=== PATIENT | female | born 1995 | race Two or more races ===

== ENCOUNTER 2018-11-28 08:38 | Emergency (ER) | payer OTHER ==
[~2018-11-28] VITALS: Ht 162.6 cm; Wt 52.6 kg
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
[2018-11-28] MEDS ORDERED: HYDROcodone/APAP 5/325 TABLET ONE (11:13)
[2018-11-28] MEDS ORDERED: HYDROcodone/APAP 5/325 TABLET PO ONE (11:30)
[2018-11-28] MEDS ORDERED: ONDANSETRON ODT 4 MG ONE (11:55)
[2018-11-28] MEDS ORDERED: ONDANSETRON ODT 4 MG PO ONE (12:00)
[2018-11-28 12:15] VITALS: BP 93/49
--- NOTE | 2018-11-28 12:18 | NUR ---
PT RESTIN COMFORTABLE EATING. ACCOMPANIED BY FRIEND. CALL LIGHT IN REACH
--- NOTE | 2018-11-28 12:55 | NUR ---
pt lissy w instructions and all belongings.
== END 2018-11-28 13:24 | disposition home or self-care (01) ==
LOC: ED 09:56
DX: S16.1XXA Strain of muscle, fascia and tendon at neck level, initial encounter (principal); S70.01XA Contusion of right hip, initial encounter; S80.02XA Contusion of left knee, initial encounter; R51 Headache; V49.59XA Passenger injured in collision with other motor vehicles in traffic accident, initial encounter; Y93.89 Activity, other specified; Y92.89 Other specified places as the place of occurrence of the external cause; Y99.8 Other external cause status
CPT/HCPCS: 70450; 72072; 72125; 73502; 73590; 99284; Q0162